=== PATIENT | male | born 1975 | race Caucasian/White ===

== ENCOUNTER 2017-03-21 12:34 | Outpatient (CLI) | payer OTHER ==
--- NOTE | 2017-03-21 13:50 | DIAGNOSTIC IMAGING REPORT ---
PROCEDURE: US SCROTUM/TESTICLE INDICATION: RT TESTICULAR PAIN TECHNIQUE: Carl scale and color Doppler sonographic images through the scrotum were obtained. COMPARISON: None. FINDINGS: The right testicle measures 4.5 cm and the left measures 4.6 cm. Both testicles demonstrate homogeneous echotexture without solid mass, cyst, or numerous microcalcifications. Color Doppler imaging demonstrates normal and symmetric arterial and venous testicular flow. No suspicious hyperemia. The tail of the right epididymis is hyperemic. No hydrocele or varicocele. No significant scrotal skin thickening. IMPRESSION: 1. Epididymitis on the right. 2. Results were called to Dr. Escobar at 01:45 p.m.
== END 2017-03-21 23:00 ==
LOC: US SRH 12:34
DX: N45.1 Epididymitis (principal)